=== PATIENT | female | born 1980 | race American Indian/Alaskan Native ===

== ENCOUNTER 2018-09-22 12:47 | Emergency (ER) | payer SELFPAY ==
--- NOTE | 2018-09-22 13:01 | Emergency Department Report ---
Blank Doc - Documentation Documentation: This is a 37-year-old female that presents with headache and has not taken blood pressure medications. This initial assessment/diagnostic orders/clinical plan/treatment(s) is/are subject to change based on patient's health status, clinical progression and re- assessment by fellow clinical providers in the ED. Further treatment and workup at subsequent clinical providers discretion. Patient/guardians urged not to elope from the ED as their condition may be serious if not clinically assessed and managed. Initial orders include: 1- Patient sent to [facility] for further evaluation and treatment 2- Ct head
[2018-09-22 13:02] VITALS: BP 151/101
[2018-09-22] MEDS ORDERED: CATAPRES PO ONE (14:24)
--- NOTE | 2018-09-22 14:25 | Emergency Department Report ---
ED Recheck HPI - General Chief Complaint: Medical Clearance Stated Complaint: RT SIDE NECK PAIN Time Seen by Provider: 09/22/18 12:59 Source: patient Mode of arrival: Ambulatory Limitations: No Limitations - History of Present Illness Initial Comments: 38 yo here for med refill. no complaints. no cp. no sob. - Related Data Previous Rx's Medication Instructions Recorded Last Taken Type amLODIPine [Norvasc] 10 mg PO DAILY #30 tab 09/22/18 Unknown Rx hydroCHLOROthiazide [HCTZ] 25 mg PO DAILY #30 tablet 09/22/18 Unknown Rx Allergies Allergy/AdvReac Type Severity Reaction Status Date / Time No Known Allergies Allergy Unverified 07/01/13 13:53 ED Review of Systems ROS: Stated complaint: RT SIDE NECK PAIN Other details as noted in HPI Comment: All other systems reviewed and negative ED Past Medical Hx - Past Medical History Previous Medical History?: Yes Hx Hypertension: Yes Hx CVA: No Hx Heart Attack/AMI: No Hx Congestive Heart Failure: No Hx Diabetes: No Hx Pulmonary Embolism: No Hx GERD: No Hx Liver Disease: No Hx Renal Disease: No Hx Sickle Cell Disease: No Hx Arthritis: No Hx Seizures: No Hx Kidney Stones: No Hx Psychiatric Treatment: No Hx Asthma: No Hx COPD: No Hx Tuberculosis: No Hx Dementia: No - Surgical History Past Surgical History?: Yes Hx Coronary Stent: No Hx Open Heart Surgery: No Hx Pacemaker: No Hx Internal Defibrillator: No Hx Cholecystectomy: No Hx Appendectomy: No Hx Breast Surgery: No Additional Surgical History: - Family History Family history: no significant - Social History Smoking Status: Never Smoker Substance Use Type: None - Medications Home Medications: Home Medications Medication Instructions Recorded Confirmed Last Taken Type amLODIPine [Norvasc] 10 mg PO DAILY #30 tab 09/22/18 Unknown Rx hydroCHLOROthiazide [HCTZ] 25 mg PO DAILY #30 tablet 09/22/18 Unknown Rx ED Physical Exam - General Limitations: No Limitations General appearance: alert - Head Head exam: Present: normocephalic - Eye Eye exam: Present: normal appearance, PERRL, EOMI - ENT ENT exam: Present: mucous membranes moist - Neck Neck exam: Present: normal inspection - Respiratory Respiratory exam: Present: normal lung sounds bilaterally - Cardiovascular Cardiovascular Exam: Present: regular rate - GI/Abdominal GI/Abdominal exam: Present: soft - Rectal Rectal exam: Present: deferred - Extremities Exam Extremities exam: Present: normal inspection, full ROM - Back Exam Back exam: Present: normal inspection, full ROM - Neurological Exam Neurological exam: Present: alert, oriented X3, CN II-XII intact, normal gait - Psychiatric Psychiatric exam: Present: normal affect, normal mood ED Course Vital Signs 09/22/18 12:59 Temperature 98.1 F Pulse Rate 83 Respiratory 18 Rate Blood Pressure 151/101 O2 Sat by Pulse 99 Oximetry ED Recheck MDM - Core Measures Measure Exclusions: not indicated - Differential Diagnosis Prescription Refill(s) - Medical Decision Making Patient comes to the ER today because she ran out of her HCTZ and her amlodipine. She states she's been off for 3 days and has had intermittent headaches. On exam patient was found sitting in the chair eating lunch with her son sitting beside her. She is neurologically intact. There is no focal deficit. No pronator drift. Cranial nerves are intact. bp elevated medicated with clonidine will dc home with dc plan of care including pcp follow up Vital Signs 09/22/18 12:59 Temperature 98.1 F Pulse Rate 83 Respiratory 18 Rate Blood Pressure 151/101 O2 Sat by Pulse 99 Oximetry Critical care attestation.: If time is entered above; I have spent that time in minutes in the direct care of this critically ill patient, excluding procedure time. ED Disposition Clinical Impression: HTN (hypertension), Medication refill Disposition: DC-01 TO HOME OR SELFCARE Is pt being admited?: No Does the pt Need Aspirin: No Condition: Stable Instructions: Hypertension (ED) Additional Instructions: DIET TOLERATED MEDS ORDERED TODAY IN ER FOLLOW INSTRUCTIONS ON THE BOTTLE FOLLOW UP PCP WITHIN 48 HOURS TO ENSURE YOU ARE GETTING BETTER ACTIVITY TOLERATED MOTRIN OR TYLENOL FOR PAIN OR FEVER RETURN TO THE ER FOR WORSENING SYMPTOMS NOT RELIEVED BY YOUR MEDICATIONS. Prescriptions: hydroCHLOROthiazide [HCTZ] 25 mg PO DAILY #30 tablet amLODIPine [Norvasc] 10 mg PO DAILY #30 tab [facility] [Primary Care Provider] - 3-5 Days HELEN WHITING MD [Staff Physician] - 3-5 Days Forms: Work/School Release Form(ED) Time of Disposition: 14:46
--- NOTE | 2018-09-22 16:04 | Cat Scan Report ---
CT head/brain wo con INDICATION: headache. TECHNIQUE: Routine CT head without contrast. Sagittal and coronal reformatted images were obtained. A ll CT scans at this location are performed using CT dose reduction for ALARA by means of automated ex posure control. COMPARISON: CT scan from 01/31/2015 FINDINGS: BRAIN / INTRACRANIAL CONTENTS: No acute hemorrhage, mass effect, midline shift, hydrocephalus, or acu te, large territorial infarct. Some of the cortical sulci in the high convexity in the parietal lobe are prominent. These remain unchanged. Subtle prominent suggesting volume loss.. No significant white matter abnormality. CRANIOCERVICAL JUNCTION: No significant abnormality. ORBITS: No significant abnormality of visualized orbits. Palpebral segments of both lacrimal glands a ppear prominent. SINUSES / MASTOIDS: No significant abnormality of the visualized paranasal sinuses or mastoid air avelina ls. ADDITIONAL FINDINGS: None. IMPRESSION: I do not see an acute parenchymal lesion. Signer Name: Satnam Irving MD Signed: 09/22/2018 4:00 PM Workstation Name: [id number]
== END 2018-09-22 14:54 | disposition home or self-care (01) ==
LOC: ED 12:47
DX: I10 Essential (primary) hypertension (principal); M54.2 Cervicalgia; Z76.0 Encounter for issue of repeat prescription
CPT/HCPCS: 70450; 99283

== ENCOUNTER 2018-11-08 13:21 | Emergency (ER) | payer SELFPAY ==
--- NOTE | 2018-11-08 13:32 | Event Note ---
ED Screening Note Date of service: 11/08/18 Time: 13:27 ED Screening Note: 38 y o presents with abd cramping with n/v d x yesterday This initial assessment/diagnostic orders/clinical plan/treatment(s) is/are subject to change based on patients health status, clinical progression and re-assessment by fellow clinical providers in the ED. Further treatment and workup at subsequent clinical providers discretion. Patient/guardian urged not to elope from the ED as their condition may be serious if not clinically assessed and managed. Initial orders include: cbc,bmp,ua,upt
[2018-11-08 13:34] VITALS: BP 115/76
[2018-11-08 14:32] LABS: Basophils % (Auto) 0.4 % (0.0-1.8); Eosinophils # (Auto) 0.1 K/mm3 (0.0-0.4); Eosinophils % (Auto) 1.6 % (0.0-4.3); Hematocrit 37.8 % (30.3-42.9); Hemoglobin 13.6 gm/dl (10.1-14.3); Lymphocytes % (Auto) 51.6 % (13.4-35.0); Mean Corpuscular HGB Conc 36 % (30-34); Mean Corpuscular Volume 85 fl (79-97); Monocytes # (Auto) 0.3 K/mm3 (0.0-0.8); Monocytes % (Auto) 6.8 % (0.0-7.3); Platelet Count 223 K/mm3 (140-440); Red Blood Count 4.44 M/mm3 (3.65-5.03); Red Cell Distribution Width 13.1 % (13.2-15.2)
[2018-11-08 14:39] LABS: Bilirubin,Urine NEG (Negative); Blood,Urine LG (Negative); Color,Urine Yellow (Yellow); Mucus,Urine 3+ /HPF
[2018-11-08 14:40] LABS: HCG Qualitative,Urine Negative (Negative); RBC,Urine > 182.0 /HPF (0.0-6.0)
[2018-11-08 14:53] LABS: BUN/Creatinine Ratio 14; Blood Urea Nitrogen 11 mg/dL (7-17); Calcium 9.1 mg/dL (8.4-10.2); Hemolysis Index 4
== END 2018-11-08 15:14 | disposition left against medical advice (07) ==
LOC: ED 13:21
DX: R51 Headache (principal); R11.10 Vomiting, unspecified; R19.7 Diarrhea, unspecified; Z53.21 Procedure and treatment not carried out due to patient leaving prior to being seen by health care provider
CPT/HCPCS: 36415; 80048; 81001; 81025; 83690; 85025; 87086

== ENCOUNTER 2019-01-15 08:43 | Emergency (ER) | payer SELFPAY ==
[2019-01-15 08:58] VITALS: BP 164/101
--- NOTE | 2019-01-15 09:16 | Emergency Department Report ---
ED General Adult HPI - General Chief complaint: Medical Clearance Stated complaint: MED REFILL Time Seen by Provider: 01/15/19 09:10 Source: patient Mode of arrival: Ambulatory Limitations: No Limitations - History of Present Illness Initial comments: Patient is 38 years old female with history of hypertension. Patient presented to the ER stating that she is out of her blood pressure medicine which is include hydrochlorothiazide 25 mg and amlodipine 10 mg. Patient stated that she followed with [facility]. Patient currently denying any headache, weakness, chest pain or shortness of breath. Patient current blood pressure is 164/101. - Related Data Previous Rx's Medication Instructions Recorded Last Taken Type amLODIPine [Norvasc] 10 mg PO DAILY #30 tab 09/22/18 Unknown Rx hydroCHLOROthiazide [HCTZ] 25 mg PO DAILY #30 tablet 09/22/18 Unknown Rx Allergies Allergy/AdvReac Type Severity Reaction Status Date / Time No Known Allergies Allergy Unverified 07/01/13 13:53 ED Review of Systems ROS: Stated complaint: MED REFILL Other details as noted in HPI Comment: All other systems reviewed and negative Constitutional: denies: chills, fever Cardiovascular: denies: chest pain Gastrointestinal: denies: abdominal pain Musculoskeletal: denies: back pain Neurological: denies: headache, weakness ED Past Medical Hx - Past Medical History Previous Medical History?: Yes Hx Hypertension: Yes Hx CVA: No Hx Heart Attack/AMI: No Hx Congestive Heart Failure: No Hx Diabetes: No Hx Pulmonary Embolism: No Hx GERD: No Hx Liver Disease: No Hx Renal Disease: No Hx Sickle Cell Disease: No Hx Arthritis: No Hx Seizures: No Hx Kidney Stones: No Hx Psychiatric Treatment: No Hx Asthma: No Hx COPD: No Hx Tuberculosis: No Hx Dementia: No - Surgical History Past Surgical History?: Yes Hx Coronary Stent: No Hx Open Heart Surgery: No Hx Pacemaker: No Hx Internal Defibrillator: No Hx Cholecystectomy: No Hx Appendectomy: No Hx Breast Surgery: No Additional Surgical History: - Social History Smoking Status: Never Smoker - Medications Home Medications: Home Medications Medication Instructions Recorded Confirmed Last Taken Type amLODIPine [Norvasc] 10 mg PO DAILY #30 tab 09/22/18 Unknown Rx hydroCHLOROthiazide [HCTZ] 25 mg PO DAILY #30 tablet 09/22/18 Unknown Rx ED Physical Exam - General Limitations: No Limitations General appearance: alert, in no apparent distress - Neck Neck exam: Present: normal inspection - Respiratory Respiratory exam: Present: normal lung sounds bilaterally - Cardiovascular Cardiovascular Exam: Present: normal heart sounds - GI/Abdominal GI/Abdominal exam: Present: soft. Absent: distended, tenderness - Neurological Exam Neurological exam: Present: alert, oriented X3, CN II-XII intact, normal gait, reflexes normal. Absent: motor sensory deficit - Skin Skin exam: Present: warm, intact, normal color ED Course Vital Signs 01/15/19 08:57 Temperature 98.1 F Pulse Rate 56 L Respiratory 16 Rate Blood Pressure 164/101 O2 Sat by Pulse 100 Oximetry Critical care attestation.: If time is entered above; I have spent that time in minutes in the direct care of this critically ill patient, excluding procedure time. ED Disposition Clinical Impression: Hypertension Disposition: DC-01 TO HOME OR SELFCARE Is pt being admited?: No Condition: Stable Instructions: Hypertension (ED) Referrals: [facility] [Provider Group] - 3-5 Days
== END 2019-01-15 09:25 | disposition home or self-care (01) ==
LOC: ED 08:43
DX: I10 Essential (primary) hypertension (principal); Z79.899 Other long term (current) drug therapy

== ENCOUNTER 2019-03-05 14:47 | Emergency (ER) | payer SELFPAY ==
--- NOTE | 2019-03-05 16:17 | Event Note ---
ED Screening Note ED Screening Note: pt presents for a medication refill states she does not have her hydrochlorothiazide 25 mg daily and amlodipine 5 mg daily she denies any symptoms at all she states she can not get an appointment with [facility] for two months states she has not taken medication in two weeks
[2019-03-05 16:18] VITALS: BP 159/107
--- NOTE | 2019-03-05 16:21 | Emergency Department Report ---
Chief Complaint: Medical Clearance Stated Complaint: MEDICATION REFILL Time Seen by Provider: 03/05/19 16:15 - HPI History of Present Illness: pt presents for a medication refill. she states she does not have her hydrochlorothiazide 25 mg daily and amlodipine 5 mg daily. she states she has not taken her medication in two weeks. she denies any symptoms at all. she states she can not get an appointment with [facility] for two months. she states [facility] usually refills her medications but she skipped an appointment. vitals with elevated blood pressure otherwise normal based on the uptodate medical literature, it does not recommended acutely treating chronic asymptomatic hypertension while in the emergency department pt is presenting with a non medical emergency at this time medical screening exam performed, no threat to limb or life at this time pt was given community resources to follow up with to manage her chronic medical condition advised pt please follow up with a primary care doctor as soon as possible. return to the emergency room for any new or worsening symptoms . - Exam Vital Signs: Vital Signs 03/05/19 16:17 Temperature 98.3 F Pulse Rate 60 Respiratory 12 Rate Blood Pressure 159/107 O2 Sat by Pulse 100 Oximetry MSE screening note: Focused history and physical exam performed. ED Disposition for MSE Clinical Impression: Encounter for medical screening examination Disposition: Z MED SCREENING EXAM-LEFT Is pt being admited?: No Does the pt Need Aspirin: No Condition: Stable Instructions: Chronic Hypertension (ED) Additional Instructions: please follow up with a primary care doctor as soon as possible. return to the emergency room for any new or worsening symptoms . Referrals: AMI LOVE MD [Staff Physician] - [facility] [Outside] - [facility] Time of Disposition: 16:19 Print Language: GEORGIAN
== END 2019-03-05 16:19 | disposition left against medical advice (07) ==
LOC: ED 14:47
DX: I10 Essential (primary) hypertension (principal); Z00.00 Encounter for general adult medical examination without abnormal findings
CPT/HCPCS: 99281

== ENCOUNTER 2020-04-02 11:51 | Emergency (ER) | payer SELFPAY ==
[2020-04-02 12:01] VITALS: BP 151/89
--- NOTE | 2020-04-02 13:47 | Emergency Department Report ---
ED Palpitations HPI - General Chief Complaint: Arrhythmia/Palpitations Stated Complaint: FAST HEARTBEAT/FACE PAIN Time Seen by Provider: 04/02/20 13:42 Source: patient Mode of arrival: Ambulatory Limitations: No Limitations - History of Present Illness Initial Comments: 39 year-old -Beninese female presents to the emergency room stating she has racing heart. Patient denies any pain denies any shortness of breath just states that is intermittent. Patient does not take any drugs. She does admit that she is under increased stress as she has 6 teenagers at her home. She did report last night that one of her kids had an incident at her home and she has been kind of upset. Patient denies any suicidal homicidal ideation. MD Complaint: "heart racing" Onset/Timin -: days(s) Context: occured during rest Associated Symptoms: denies other symptoms, other (feel nervous) - Related Data Previous Rx's Medication Instructions Recorded Last Taken Type amLODIPine [Norvasc] 10 mg PO DAILY #30 tab 09/22/18 Unknown Rx hydroCHLOROthiazide [HCTZ] 25 mg PO DAILY #30 tablet 09/22/18 Unknown Rx amLODIPine 10 mg PO DAILY #30 tab 01/15/19 Unknown Rx hydroCHLOROthiazide [HCTZ] 25 mg PO QDAY #30 tablet 01/15/19 Unknown Rx Allergies Allergy/AdvReac Type Severity Reaction Status Date / Time No Known Allergies Allergy Unverified 07/01/13 13:53 ED Review of Systems ROS: Stated complaint: FAST HEARTBEAT/FACE PAIN Other details as noted in HPI Comment: All other systems reviewed and negative ED Past Medical Hx - Past Medical History Previous Medical History?: Yes Hx Hypertension: Yes Hx CVA: No Hx Heart Attack/AMI: No Hx Congestive Heart Failure: No Hx Diabetes: No Hx Pulmonary Embolism: No Hx GERD: No Hx Liver Disease: No Hx Renal Disease: No Hx Sickle Cell Disease: No Hx Arthritis: No Hx Seizures: No Hx Kidney Stones: No Hx Psychiatric Treatment: No Hx Asthma: No Hx COPD: No Hx Tuberculosis: No Hx Dementia: No - Surgical History Past Surgical History?: Yes Hx Coronary Stent: No Hx Open Heart Surgery: No Hx Pacemaker: No Hx Internal Defibrillator: No Hx Cholecystectomy: No Hx Appendectomy: No Hx Breast Surgery: No Additional Surgical History: - Social History Smoking Status: Never Smoker Substance Use Type: None - Medications Home Medications: Home Medications Medication Instructions Recorded Confirmed Last Taken Type amLODIPine [Norvasc] 10 mg PO DAILY #30 tab 09/22/18 Unknown Rx hydroCHLOROthiazide [HCTZ] 25 mg PO DAILY #30 tablet 09/22/18 Unknown Rx amLODIPine 10 mg PO DAILY #30 tab 01/15/19 Unknown Rx hydroCHLOROthiazide [HCTZ] 25 mg PO QDAY #30 tablet 01/15/19 Unknown Rx ED Physical Exam - General Limitations: No Limitations General appearance: alert, in no apparent distress - Head Head exam: Present: atraumatic, normocephalic - Eye Eye exam: Present: normal appearance - ENT ENT exam: Present: mucous membranes moist - Neck Neck exam: Present: normal inspection - Respiratory Respiratory exam: Present: normal lung sounds bilaterally. Absent: respiratory distress - Cardiovascular Cardiovascular Exam: Present: regular rate, normal rhythm. Absent: systolic murmur, diastolic murmur, rubs, gallop - GI/Abdominal GI/Abdominal exam: Present: soft, normal bowel sounds - Extremities Exam Extremities exam: Present: normal inspection, full ROM - Back Exam Back exam: Present: normal inspection, full ROM - Neurological Exam Neurological exam: Present: alert, oriented X3, normal gait - Psychiatric Psychiatric exam: Present: normal affect, normal mood - Skin Skin exam: Present: warm, dry, intact, normal color. Absent: rash ED Course Vital Signs 04/02/20 11:57 Temperature 98.0 F Pulse Rate 81 Respiratory 16 Rate Blood Pressure 151/89 O2 Sat by Pulse 100 Oximetry ED Medical Decision Making - Medical Decision Making 39 year-old -[place] female presents to the emergency room stating she has racing heart. Patient denies any pain denies any shortness of breath just states that is intermittent. Patient does not take any drugs. She does admit that she is under increased stress as she has 6 teenagers at her home. She did report last night that one of her kids had an incident at her home and she has been kind of upset. Patient denies any suicidal homicidal ideation. Recommend to follow-up with mental health provider. Recommend meditation. Critical care attestation.: If time is entered above; I have spent that time in minutes in the direct care of this critically ill patient, excluding procedure time. ED Disposition Clinical Impression: Anxiety, Stress at home Disposition: DC-01 TO HOME OR SELFCARE Is pt being admited?: No Does the pt Need Aspirin: No Condition: Stable Instructions: Managing Anxiety, Adult Additional Instructions: Referral to mental health and recommend mediation. Follow up with a PCP. Referrals: PRIMARY CARE, [Primary Care Provider] - 3-5 Days [facility] [Outside] - 3-5 Days Forms: Work/School Release Form(ED)
== END 2020-04-02 14:02 | disposition home or self-care (01) ==
LOC: ED 11:51
DX: F41.1 Generalized anxiety disorder (principal); F43.0 Acute stress reaction; I10 Essential (primary) hypertension; Z79.899 Other long term (current) drug therapy; Z98.890 Other specified postprocedural states
CPT/HCPCS: 93005; 99282